=== PATIENT | male | born 1960 | race African-American/Black ===

== ENCOUNTER 2024-02-05 17:04 | Emergency (ER) | payer MEDICARE, MEDICAID ==
[2024-02-05] MEDS ORDERED: Bacitracin 1 PK ONE (18:51)
== END 2024-02-05 19:10 | disposition home or self-care (01) ==
LOC: NAV ERS 17:04
DX: T25.221A Burn of second degree of right foot, initial encounter (principal); T31.0 Burns involving less than 10% of body surface; I10 Essential (primary) hypertension; E11.9 Type 2 diabetes mellitus without complications; F17.210 Nicotine dependence, cigarettes, uncomplicated; Z79.84 Long term (current) use of oral hypoglycemic drugs; Z79.899 Other long term (current) drug therapy
CPT/HCPCS: 16020; 99283